=== PATIENT | male | born 2000 | race Caucasian/White ===

== ENCOUNTER 2025-02-27 03:00 | Emergency (ER) | payer OTHER, SELFPAY ==
[2025-02-27 03:08] VITALS: BP 130/81; PULSE 60; TEMP 36.7; O2SAT 98; BMI 34.7
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
== END 2025-02-27 04:38 | disposition home or self-care (01) ==
PROVIDERS: Emergency Provider Emergency Medicine
DX: G89.18 Other acute postprocedural pain (principal); R20.0 Anesthesia of skin; Z98.890 Other specified postprocedural states
CPT/HCPCS: 99283

== ENCOUNTER 2025-03-10 11:02 | Emergency (ER) | payer OTHER, SELFPAY ==
[2025-03-10 11:05] VITALS: BP 110/69; PULSE 111; TEMP 36.8; O2SAT 98; BMI 31.5
--- OUTSIDE RECORDS SUMMARY | 2025-03-10 11:27 | XMS_ITS | CCD ---
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 of pleural effusion or pneumothorax. Soft Tissues/Bones: There is bilateral gynecomastia. No acute displaced rib fracture or chest wall hematoma. Abdomen/Pelvis: Organs: Liver enhances normally without evidence of intrahepatic biliary ductal dilatation. The spleen, pancreas and adrenal glands are unremarkable. Left kidney enhances normally. No acute traumatic injury of the solid abdominal organs. There is a small chronically atrophic nonfunctioning right kidney. GI/Bowel: Stomach and duodenal sweep demonstrate no acute abnormality. The appendix is visualized and is unremarkable. No evidence of acute appendicitis. There is no evidence of bowel obstruction. No evidence of abnormal bowel wall thickening or distension. Pelvis: Bladder and prostate demonstrate no acute abnormality. Peritoneum/Retroperi toneum: No evidence of ascites or free air. No evidence of lymphadenopathy. Aorta is normal in caliber. Bones/Soft Tissues: No acute abnormality of the visualized osseous structures. No acute traumatic injury. Thoracic/lumbar spine: Thoracic and lumbar spine demonstrate normal alignment with normal height of the vertebral bodies. No evidence of an acute traumatic compression fracture. The spinous and transverse processes are intact. Mild multilevel degenerative changes noted throughout the thoracic and lumbar spine. No severe spinal canal stenosis. No paraspinal mass or hematoma. IMPRESSION: No evidence of traumatic injury to the chest, abdomen or pelvis. No evidence of traumatic injury to the thoracic or lumbar spine. Small chronically atrophic nonfunctioning right kidney. Interpreted by: Adi Kaye MD Signed by: Adi Kaye MD 03/01/25 Final result Normal [facility] Basic Metab w/rfx MGon 02-26 Anion gap [Moles/Vol] 11 mmol/L Normal 9-16 [facility] Comment on above: Performed By: #### C DP, BMPX #### [address] [address] [employer]: Guicho Richards MD Calcium [Mass/Vol] 8.6 mg/dL Normal 8.6-10.4 [facility] Comment on above: Performed By: #### C DP, BMPX #### [address] [address] [employer]: Guicho Richards MD Chloride [Moles/Vol] 105 mmol/L Normal 98-107 [facility] Comment on above: Performed By: #### C DP, BMPX #### [address] [address] [employer]: Guicho Richards MD CO2 [Moles/Vol] 22 mmol/L Normal 20-31 [facility] Comment on above: Performed By: #### C DP, BMPX #### [address] [address] [employer] Architect: Guicho Richards MD Creatinine [Mass/Vol] 0.9 mg/dL Normal 0.7-1.2 [facility] Comment on above: Performed By: #### C DP, BMPX #### [address] [address] [employer]: Guicho Richards MD GFR/1.73 sq M.predicted among non-blacks MDRD (S/P/Bld) [Vol rate/Area] mL/min/{1.73_m2} Normal >60 [facility] Comment on above: Result Comment: These results are not intended for use in patients <18 years of age. eGFR results are calculated without a race factor using the 2020 CKD-EPI equation. Careful clinical correlation is recommended, particularly when comparing to results calculated using previous equations. The CKD-EPI equation is less accurate in patients with extremes of muscle mass, extra-renal metabolism of creatine, excessive creatine ingestion, or following therapy that affects renal tubular secretion. Performed By: #### C DP, BMPX #### [facility] [address] [place] [phone] [employer]: Guicho Richards MD Glucose [Mass/Vol] 85 mg/dL Normal 74-99 [facility] Comment on above: Performed By: #### C DP, BMPX #### [facility] [address] [place] [address] [employer]: Guicho Richards MD Potassium [Moles/Vol] 3.8 mmol/L Normal 3.7-5.3 [facility] Comment on above: Result Comment: Spec imen hemolysis has exceeded the interference as defined by Isaiah. Value may be falsely increased. Suggest recollection if clinically indicated. Performed By: #### C DP, BMPX #### [address] [address] [employer]: Guicho Richards MD Sodium [Moles/Vol] 138 mmol/L Normal 136-145 [facility] Comment on above: Performed By: #### C DP, BMPX #### [facility] [address] [place] [address] [employer]: Guicho Richards MD Urea nitrogen [Mass/Vol] 12 mg/dL Normal 6-20 [facility] Comment on above: Performed By: #### C DP, BMPX #### [facility] [address] [place] [address] [employer]: Guicho Richards MD Basic Metabolic Panel w/ Ref barbara to MGon 03-30-2025 Anion gap [Moles/Vol] 11 mmol/L 9 - 16 mmol/L [facility] Calcium [Mass/Vol] 8.6 mg/dL 8.6 - 10. 4 mg/dL [facility] Chloride [Moles/Vol] 105 mmol/L 98 - 10 7 mmol/L [facility] CO2 [Moles/Vol] 22 mmol/L 20 - 31 mmol/L [facility] Creatinine [Mass/Vol] 0.9 mg/dL 0.7 - 1.2 mg/dL [facility] Est, Glom Filt Rate - PINF [facility] Comment on above: These results are not intended for use in patients <18 years of age. eGFR results are calculated without a race factor using the 2020 CKD-EPI equation. Careful clinical correlation is recommended, particularly when comparing to results calculated using previous equations. The CKD-EPI equation is less accurate in patients with extremes of muscle mass, extra-renal metabolism of creatine, excessive creatine ingestion, or following therapy that affects renal tubular secretion. Glucose [Mass/Vol] 85 mg/dL 74 - 99 mg/dL [facility] Potassium [Moles/Vol] 3.8 mmol/L 3.7 - 5.3 mmol/L [facility] Comment on above: Specimen hemolysis h as exceeded the interference as defined by Isaiah. Value may be falsely increased. Suggest recollection if clinically indicated. Sodium [Moles/Vol] 138 mmol/L 136 - 145 mmol/L [facility] Urea nitrogen [Mass/Vol] 12 mg/dL 6 - 20 mg/dL [facility] CBC with Auto Differentialon 02-26-2025 Basophils (Bld) [#/Vol] 0.03 10*3/uL [facility] Basophils/100 WBC (Bld) 0 % 0 - 2 % [facility] Eosinophils (Bld) [#/Vol] 0.11 10*3/uL [facility] Eosinophils/100 WBC (Bld) 1 % 1 - 4 % [facility] Erythrocyte distribution width (RBC) [Ratio] 13.4 % 11.8 - 14.4 % [facility] Hematocrit (Bld) [Volume fraction] 38.3 % Low 40.7 - 50.3 % [facility] Hemoglobin (Bld) [Mass/Vol] 12.2 g/dL Low 13.0 - 17.0 g/dL [facility] Immature granulocytes (Bld) [#/Vol] [facility] Immature granulocytes/100 WBC (Bld) 0 % 0 [facility] Interpretation and review of laboratory results Abnormal [facility] Lymphocytes/100 WBC (Bld) 34 % 24 - 43 % [facility] Lymphocytes/100 WBC (Bld) 3.07 % [facility] MCH (RBC) [Entitic mass] 28.8 pg 25.2 - 33.5 pg [facility] MCHC (RBC) [Mass/Vol] 31.9 g/dL 28.4 - 34.8 g/dL [facility] MCV (RBC) [Entitic vol] 90.3 fL 82.6 - 102.9 fL [facility] Monocytes/100 WBC (Bld) 6 % 3 - 12 % [facility] Monocytes/100 WBC (Bld) 0.58 % [facility] Neutrophils/100 WBC (Bld) 58 % 36 - 65 % [facility] Nucleated RBC/100 WBC (Bld) [Ratio] 0 % 0.0 per 100 WBC [facility] Platelet mean volume (Bld) [Entitic vol] 9.8 fL 8.1 - 13.5 fL [facility] Platelets (Bld) [#/Vol] 221 10*3/uL [facility] RBC (Bld) [#/Vol] 4.24 10*6/uL 4.21 - 5.7 7 m/uL [facility] Segmented neutrophils/100 WBC (Bld) 5.32 % [facility] WBC other (Bld) [#/Vol] 9.1 [facility] CBC with Diffon 02-26-2025 Abs. Basophil 0.03 k/uL Normal 0.00-0.20 [facility] Comment on above: Performed By: #### C DP, BMPX #### [facility] [address] [place] [address] [employer]: Guicho Richards MD Abs.Imm.Granulocyte <0.03 Normal 0.00-0.30 [facility] Comment on above: Performed By: #### C DP, BMPX #### [address] [address] [employer]: Guicho Richards MD Abs.Neutrophil (Seg) 5.32 k/uL Normal 1.50-8.10 [facility] Comment on above: Performed By: #### C DP, BMPX #### [address] [address] [employer]: Guicho Richards MD Basophils/100 WBC (Bld) 0 % Normal 0-2 [facility] Comment on above: Performed By: #### C DP, BMPX #### [place] [address] [employer]: Guicho Richards MD Eosinophils (Bld) [#/Vol] 0.11 10*3/uL Normal 0.00-0.44 [facility] Comment on above: Performed By: #### C DP, BMPX #### [address] [address] [employer]: Guicho Richards MD Eosinophils/100 WBC (Bld) 1 % Normal 1-4 [facility] Comment on above: Performed By: #### C DP, BMPX #### [address] [address] [employer] Architect: Guicho Richards MD Erythrocyte distribution width (RBC) [Ratio] 13.4 % Normal 11.8-14.4 [facility] Comment on above: Performed By: #### C DP, BMPX #### [address] [address] [employer]: Guicho Richards MD Hematocrit (Bld) [Volume fraction] 38.3 % Low 40.7-50.3 [facility] Comment on above: Performed By: #### C DP, BMPX #### [address] [address] [employer]: Guicho Richards MD Hemoglobin (Bld) [Mass/Vol] 12.2 g/dL Low 13.0-17.0 [facility] Comment on above: Performed By: #### C DP, BMPX #### [address] [address] [employer]: Guicho Richards MD Immature granulocytes/100 WBC (Bld) 0 % Normal 0 [facility] Comment on above: Performed By: #### C DP, BMPX #### [address] [address] [employer]: Guicho Richards MD Lymphocytes (Bld) [#/Vol] 3.07 10*3/uL Normal 1.10-3.70 [facility] Comment on above: Performed By: #### C DP, BMPX #### [address] [address] [employer]: Guicho Richards MD Lymphocytes/100 WBC (Bld) 34 % Normal 24-43 [facility] Comment on above: Performed By: #### C DP, BMPX #### [place] [address] [employer]: Guicho Richards MD MCH (RBC) [Entitic mass] 28.8 pg Normal 25.2-33.5 [facility] Comment on above: Performed By: #### C DP, BMPX #### [address] [address] [employer] Architect: Guicho Richards MD MCHC (RBC) [Mass/Vol] 31.9 g/dL Normal 28.4-34.8 [facility] Comment on above: Performed By: #### C DP, BMPX #### [address] [address] [employer] Architect: Guicho Richards MD MCV (RBC) [Entitic vol] 90.3 fL Normal 82.6-102.9 [facility] Comment on above: Performed By: #### C DP, BMPX #### [place] [address] [employer]: Guicho Richards MD Monocytes (Bld) [#/Vol] 0.58 10*3/uL Normal 0.10-1.20 [facility] Comment on above: Performed By: #### C DP, BMPX #### [place] [address] [employer]: Guicho Richards MD Monocytes/100 WBC (Bld) 6 % Normal 3-12 [facility] Comment on above: Performed By: #### C DP, BMPX #### [place] [address] [employer]: Guicho Richards MD Neutrophil (Seg) 58 % Normal 36-65 [facility] Comment on above: Performed By: #### C DP, BMPX #### [place] [address] [employer]: Guicho Richards MD NRBC Automated 0.0 per 100 WBC Normal 0.0 [facility] Comment on above: Performed By: #### C DP, BMPX #### [place] [address] [employer]: Guicho Richards MD Platelet mean volume (Bld) [Entitic vol] 9.8 fL Normal 8.1-13.5 [facility] Comment on above: Performed By: #### C DP, BMPX #### [address] [address] [employer] Architect: Guicho Richards MD Platelets (Bld) [#/Vol] 221 10*3/uL Normal 138-453 [facility] Comment on above: Performed By: #### C DP, BMPX #### [address] [address] [employer] Architect: Guicho Richards MD RBC (Bld) [#/Vol] 4.24 10*6/uL Normal 4.21-5.77 [facility] Comment on above: Performed By: #### C DP, BMPX #### [address] [address] [employer] Architect: Guicho Richards MD WBC (Bld) [#/Vol] 9.1 10*3/uL Normal 3.5-11.3 [facility] Comment on above: Performed By: #### C DP, BMPX #### [address] [address] [employer]: Guicho Richards MD Basic Metab w/rfx MGon 02-25 Anion gap [Moles/Vol] 12 mmol/L Normal 9-16 [facility] Comment on above: Performed By: #### C DP, BMPX #### [facility] [address] [place] [address] [employer]: Guicho Richards MD Calcium [Mass/Vol] 8.5 mg/dL Low 8.6-10.4 [facility] Comment on above: Performed By: #### C DP, BMPX #### [facility] [address] [place] [address] [employer] Architect: Guicho Richards MD Chloride [Moles/Vol] 105 mmol/L Normal 98-107 [facility] Comment on above: Performed By: #### C DP, BMPX #### [facility] [address] [place] [address] [employer] Architect: Guicho Richards MD CO2 [Moles/Vol] 21 mmol/L Normal 20-31 [facility] Comment on above: Performed By: #### C DP, BMPX #### [facility] [address] [place] [address] [employer]: Guicho Richards MD Creatinine [Mass/Vol] 0.8 mg/dL Normal 0.7-1.2 [facility] Comment on above: Performed By: #### C DP, BMPX #### [address] [address] [employer] Architect: Guicho Richards MD GFR/1.73 sq M.predicted among non-blacks MDRD (S/P/Bld) [Vol rate/Area] mL/min/{1.73_m2} Normal >60 [facility] Comment on above: Result Comment: These results are not intended for use in patients <18 years of age. eGFR results are calculated without a race factor using the 2020 CKD-EPI equation. Careful clinical correlation is recommended, particularly when comparing to results calculated using previous equations. The CKD-EPI equation is less accurate in patients with extremes of muscle mass, extra-renal metabolism of creatine, excessive creatine ingestion, or following therapy that affects renal tubular secretion. Performed By: #### C DP, BMPX #### [facility] [address] [place] [address] [employer]: Guicho Richards MD Glucose [Mass/Vol] 104 mg/dL High 74-99 [facility] Comment on above: Performed By: #### C DP, BMPX #### [facility] [address] [place] [address] [employer] Architect: Guicho Richards MD Potassium [Moles/Vol] 4.4 mmol/L Normal 3.7-5.3 [facility] Comment on above: Result Comment: Spec imen hemolysis has exceeded the interference as defined by Isaiah. Value may be falsely increased. Suggest recollection if clinically indicated. Performed By: #### C DP, BMPX #### [facility] [address] [place], [place] [phone] [employer]: Guicho Richards MD Sodium [Moles/Vol] 138 mmol/L Normal 136-145 [facility] Comment on above: Performed By: #### C DP, BMPX #### [facility] [address] [place], [place] [phone] [employer] Architect: Guicho Richards MD Urea nitrogen [Mass/Vol] 10 mg/dL Normal 6-20 [facility] Comment on above: Performed By: #### C DP, BMPX #### [facility] [address] [place], [place] [phone] [employer]: Guicho Richards MD Basic Metabolic Panel w/ Ref barbara to MG 02-25-2025 Anion gap [Moles/Vol] 12 mmol/L 9 - 16 mmol/L [facility] [employer] Calcium [Mass/Vol] 8.5 mg/dL Low 8.6 - 10. 4 mg/dL [facility] Chloride [Moles/Vol] 105 mmol/L 98 - 10 7 mmol/L [facility] CO2 [Moles/Vol] 21 mmol/L 20 - 31 mmol/L [facility] Creatinine [Mass/Vol] 0.8 mg/dL 0.7 - 1.2 mg/dL [facility] [employer] [facility] [employer] Est, [place] Rate - PINF [facility] Comment on above: These results are not intended for use in patients <18 years of age. eGFR results are calculated without a race factor using the 2020 CKD-EPI equation. Careful clinical correlation is recommended, particularly when comparing to results calculated using previous equations. The CKD-EPI equation is less accurate in patients with extremes of muscle mass, extra-renal metabolism of creatine, excessive creatine ingestion, or following therapy that affects renal tubular secretion. Glucose [Mass/Vol] 104 mg/dL High 74 - 99 mg/dL [facility] [employer] Interpretation and review of laboratory results Abnormal [facility] Potassium [Moles/Vol] 4.4 mmol/L 3.7 - 5.3 mmol/L [facility] Comment on above: Specimen hemolysis h as exceeded the interference as defined by Isaiah. Value may be falsely increased. Suggest recollection if clinically indicated. Sodium [Moles/Vol] 138 mmol/L 136 - 145 mmol/L [facility] Urea nitrogen [Mass/Vol] 10 mg/dL 6 - 20 mg/dL [facility] CBC with Auto Differentialon 02-25-2025 Basophils (Bld) [#/Vol] [facility] Basophils/100 WBC (Bld) 0 % 0 - 2 % [facility] Eosinophils (Bld) [#/Vol] [facility] Eosinophils/100 WBC (Bld) 0 % Low 1 - 4 % [facility] Erythrocyte distribution width (RBC) [Ratio] 13.1 % 11.8 - 14.4 % [facility] Hematocrit (Bld) [Volume fraction] 41.1 % 40.7 - 50.3 % [facility] Hemoglobin (Bld) [Mass/Vol] 13.2 g/dL 13.0 - 17.0 g/dL [facility] Immature granulocytes (Bld) [#/Vol] 0.08 10*3/uL [facility] Immature granulocytes/100 WBC (Bld) 1 % High 0 [facility] Interpretation and review of laboratory results Abnormal [facility] Lymphocytes/100 WBC (Bld) 10 % Low 24 - 43 % [facility] Lymphocytes/100 WBC (Bld) 1.4 % [facility] MCH (RBC) [Entitic mass] 28.9 pg 25.2 - 33.5 pg [facility] MCHC (RBC) [Mass/Vol] 32.1 g/dL 28.4 - 34.8 g/dL [facility] MCV (RBC) [Entitic vol] 90.1 fL 82.6 - 102.9 fL [facility] Monocytes/100 WBC (Bld) 4 % 3 - 12 % [facility] Monocytes/100 WBC (Bld) 0.57 % [facility] Neutrophils/100 WBC (Bld) 85 % High 36 - 65 % [facility] Nucleated RBC/100 WBC (Bld) [Ratio] 0 % 0.0 per 100 WBC [facility] Platelet mean volume (Bld) [Entitic vol] 10.1 fL 8.1 - 13.5 fL [facility] Platelets (Bld) [#/Vol] 236 10*3/uL [facility] RBC (Bld) [#/Vol] 4.56 10*6/uL 4.21 - 5.7 7 m/uL [facility] Segmented neutrophils/100 WBC (Bld) 12.72 % High [facility] WBC other (Bld) [#/Vol] 14.8 High [facility] CBC with Diffon 02-25-2025 Abs. Basophil <0.03 Normal 0.00-0.20 [facility] Comment on above: Performed By: #### C DP, BMPX #### [place] [address] [employer]: Guicho Richards MD Abs. Eosinophil <0.03 Normal 0.00-0.44 [facility] Comment on above: Performed By: #### C DP, BMPX #### [facility] [address] [place] [address] [employer]: Guicho Richards MD Abs.Imm.Granulocyte 0.08 k/uL Normal 0.00-0.30 [facility] Comment on above: Performed By: #### C DP, BMPX #### [facility] [address] [place] [address] [employer]: Guicho Richards MD Abs.Neutrophil (Seg) 12.72 k/uL High 1.50-8.10 [facility] Comment on above: Performed By: #### C DP, BMPX #### [facility] [address] [place] [address] [employer]: Guicho Richards MD Basophils/100 WBC (Bld) 0 % Normal 0-2 [facility] Comment on above: Performed By: #### C DP, BMPX #### [facility] [address] [place] [address] [employer]: Guicho Richards MD Eosinophils/100 WBC (Bld) 0 % Low 1-4 [facility] Comment on above: Performed By: #### C DP, BMPX #### [facility] [address] [place] [address] [employer]: Guicho Richards MD Erythrocyte distribution width (RBC) [Ratio] 13.1 % Normal 11.8-14.4 [facility] Comment on above: Performed By: #### C DP, BMPX #### [facility] [address] [place] [address] [employer]: Guicho Rcihards MD Hematocrit (Bld) [Volume fraction] 41.1 % Normal 40.7-50.3 [facility] Comment on above: Performed By: #### C DP, BMPX #### [facility] [address] [place] [address] [employer]: Guicho Richards MD Hemoglobin (Bld) [Mass/Vol] 13.2 g/dL Normal 13.0-17.0 [facility] Comment on above: Performed By: #### C DP, BMPX #### [facility] [address] [place] [address] [employer]: Guicho Richards MD Immature granulocytes/100 WBC (Bld) 1 % High 0 [facility] Comment on above: Performed By: #### C DP, BMPX #### [facility] [address] [place] [address] [employer]: Guicho Richards MD Lymphocytes (Bld) [#/Vol] 1.40 10*3/uL Normal 1.10-3.70 [facility] Comment on above: Performed By: #### C DP, BMPX #### [address] [address] [employer]: Guicho Richards MD Lymphocytes/100 WBC (Bld) 10 % Low 24-43 [facility] Comment on above: Performed By: #### C DP, BMPX #### [address] [address] [employer] Architect: Guicho Richards MD MCH (RBC) [Entitic mass] 28.9 pg Normal 25.2-33.5 [facility] Comment on above: Performed By: #### C DP, BMPX #### [address] [address] [employer] Architect: Guicho Richards MD MCHC (RBC) [Mass/Vol] 32.1 g/dL Normal 28.4-34.8 [facility] Comment on above: Performed By: #### C DP, BMPX #### [address] [address] [employer] Architect: Guicho Richards MD MCV (RBC) [Entitic vol] 90.1 fL Normal 82.6-102.9 [facility] Comment on above: Performed By: #### C DP, BMPX #### [address] [address] [employer] Architect: Guicho Richards MD Monocytes (Bld) [#/Vol] 0.57 10*3/uL Normal 0.10-1.20 [facility] Comment on above: Performed By: #### C DP, BMPX #### [address] [address] [employer] Architect: Guicho Richards MD Monocytes/100 WBC (Bld) 4 % Normal 3-12 [facility] Comment on above: Performed By: #### C DP, BMPX #### [address] [address] [employer] Architect: Guicho Richards MD Neutrophil (Seg) 85 % High 36-65 [facility] Comment on above: Performed By: #### C DP, BMPX #### [address] [address] [employer] Architect: Guicho Richards MD NRBC Automated 0.0 per 100 WBC Normal 0.0 [facility] Comment on above: Performed By: #### C DP, BMPX #### [address] [address] [employer] Architect: Guicho Richards MD Platelet mean volume (Bld) [Entitic vol] 10.1 fL Normal 8.1-13.5 [facility] Comment on above: Performed By: #### C DP, BMPX #### [address] [address] [employer] Architect: Guicho Richards MD Platelets (Bld) [#/Vol] 236 10*3/uL Normal 138-453 [facility] Comment on above: Performed By: #### C DP, BMPX #### [address] [address] [employer] Architect: Guicho Richards MD RBC (Bld) [#/Vol] 4.56 10*6/uL Normal 4.21-5.77 [facility] Comment on above: Performed By: #### C DP, BMPX #### [address] [address] [employer] Architect: Guicho Richards MD WBC (Bld) [#/Vol] 14.8 10*3/uL High 3.5-11.3 [facility] Comment on above: Performed By: #### C DP, BMPX #### [address] [address] [employer] Architect: Guicho Richards MD XR TIBIA FIBULA LEFT (2 VIEW S)on 02-25-2025 XR TIBIA FIBULA LEFT (2 VIEWS) EXAMINATION: XRAY VIEWS OF THE LEFT TIBIA AND FIBULA 02/25/2025 7:30 pm COMPARISON: 02/24/2025 HISTORY: ORDERING SYSTEM PROVIDED HISTORY: Fall, r/o injury post op TECHNOLOGIST PROVIDED HISTORY: Fall, r/o injury post op Reason for Exam: fall after having surgery yesterday FINDINGS: Postsurgical changes seen in the tibia with intramedullary александр and interlocking screws transfixing the distal 3rd tibial fracture, the appearance is similar to prior exam. No additional fracture. There is soft tissue swelling over the ankle joint. IMPRESSION: Postsurgical changes in the tibia with intramedullary александр and interlocking screws transfixing the distal tibial fracture, the appearance is similar to prior exam. No additional fracture. Soft tissue swelling over the ankle joint. Interpreted by: Tru Tran MD Signed by: Tru Tran MD 02/25/25 Final result Normal [facility] XR Tibia and Fibula - left 2 Viewson 02-25-2025 Postsurgical changes in the tibia with intramedullary александр and interlocking screws transfixing the distal tibial fracture, the appearance is similar to prior exam. No additional fracture. Soft tissue swelling over the ankle joint. [facility] EXAMINATION: XRAY VIEWS OF THE LEFT TIBIA AND FIBULA 02/25/2025 7:30 pm COMPARISON: 02/24/2025 HISTORY: ORDERING SYSTEM PROVIDED HISTORY: Fall, r/o injury post op TECHNOLOGIST PROVIDED HISTORY: Fall, r/o injury post op Reason for Exam: fall after having surgery yesterday FINDINGS: Postsurgical changes seen in the tibia with intramedullary александр and interlocking screws transfixing the distal 3rd tibial fracture, the appearance is similar to prior exam. No additional fracture. There is soft tissue swelling over the ankle joint. [facility] Tru Tran MD - 02/25/2025 EXAMINATION: XRAY VIEWS OF THE LEFT TIBIA AND FIBULA 02/25/2025 7:30 pm COMPARISON: 02/24/2025 HISTORY: ORDERING SYSTEM PROVIDED HISTORY: Fall, r/o injury post op TECHNOLOGIST PROVIDED HISTORY: Fall, r/o injury post op Reason for Exam: fall after having surgery yesterday FINDINGS: Postsurgical changes seen in the tibia with intramedullary александр and interlocking screws transfixing the distal 3rd tibial fracture, the appearance is similar to prior exam. No additional fracture. There is soft tissue swelling over the ankle joint. IMPRESSION: Postsurgical changes in the tibia with intramedullary александр and interlocking screws transfixing the distal tibial fracture, the appearance is similar to prior exam. No additional fracture. Soft tissue swelling over the ankle joint. [facility] Radiology Study observation (narrative) [facility] XR Tibia and Fibula - left 2 ViewsOrdered By: Tru Tran on 02-25-2025 [facility] Work Phone: Basic Metab w/rfx MGon 02-24 Anion gap [Moles/Vol] 16 mmol/L Normal 9-16 [facility] Comment on above: Performed By: #### B MPX #### [address] [address] [employer] Architect: Guicho Richards MD Calcium [Mass/Vol] 8.8 mg/dL Normal 8.6-10.4 [facility] Comment on above: Performed By: #### B MPX #### [address] [address] [employer] Architect: Guicho Richards MD Chloride [Moles/Vol] 103 mmol/L Normal 98-107 [facility] Comment on above: Performed By: #### B MPX #### [facility] [address] [place] [address] [employer] Architect: Guicho Richards MD CO2 [Moles/Vol] 18 mmol/L Low 20-31 [facility] Comment on above: Performed By: #### B MPX #### [facility] [address] [place] [address] [employer] Architect: Guicho Richards MD Creatinine [Mass/Vol] 0.9 mg/dL Normal 0.7-1.2 [facility] Comment on above: Performed By: #### B MPX #### [address] [address] [employer] Architect: Guicho Richards MD GFR/1.73 sq M.predicted among non-blacks MDRD (S/P/Bld) [Vol rate/Area] mL/min/{1.73_m2} Normal >60 [facility] Comment on above: Result Comment: These results are not intended for use in patients <18 years of age. eGFR results are calculated without a race factor using the 2020 CKD-EPI equation.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 control pain) for up to 7 days. Max Daily Amount: 30 mg 42 tablet 02/26/2025 naproxen (NAPROSYN) 500 MG tablet Take 1 tablet by mouth 2 times daily (with meals) 28 tablet 1 02/26/2025 gabapentin (NEURONTIN) 100 MG capsule Take 1 capsule by mouth 3 times daily for 14 days. 42 capsule 02/26/2025 docusate sodium (COLACE) 100 MG capsule Take 1 capsule by mouth 2 times daily as needed for Constipation 20 capsule 02/26/2025 cyclobenzaprine (FLEXERIL) 10 MG tablet Take 1 tablet by mouth 3 times daily as needed for Muscle spasms 50 tablet 02/26/2025 acetaminophen (TYLENOL) 500 MG tablet Take 2 tablets by mouth every 6 hours as needed for Pain 112 tablet 02/26/2025 vitamin D (ERGOCALCIFEROL) 1.25 MG (54710 UT) CAPS capsule Take 1 capsule by mouth once a week 12 capsule 1 02/23/2025 Scheduled Active and Recently Administ ered Medications (unrecognized section and content) Medication Order 02/24/2025 02/25/2025 02/26/2025 acetaminophen (TYLENOL) tablet 650 mg 650 mg, Oral, EVERY 6 HOURS, First dose on Susan 02/23/25 at 1245, Until Discontinued, Maximum dose of acetaminophen is 4000 mg from all sources in 24 hours. 0512 (Given - Provider: Mckenna Reyna RN)0803 (MAR Hold - Provider: Rufina Autohold - Reason: Unreviewed Transfer Orders)0900 (Automatically Held - Provider: Rfuina Autohold)1500 (Automatically Held - Provider: Rufina Autohold)1535 (MAR Unhold - Provider: Sujey Sanchez RN)1554 (Given - Provider: Sujey Sanchez RN)202 (Given - Provider: Ella Wu RN) 0328 (Given - Provider: Danelle Bernstein RN)0925 (Given - Provider: Jessy Stroud)153 (Given - Provider: Jessy Stroud)2031 (Given - Provider: Edson Ruth RN) 0344 (Given - Provider: Edson Ruth RN)0841 (Given - Provider: Nikki Elizabeth, RN)1440 (Given - Provider: Nikki Elizabeth RN)2100 (Due - Provider: Teressa Christy [facility]) ceFAZolin (ANCEF) 2000 mg in sterile water 20 mL IV syringe (COMPLETED) 2,000 mg, IntraVENous, TRAVEL PTA TO O.R., On Thu02/24/25 at 0000, For 1 dose, Do not administer on the floor. Please transport to OR with pt on day of surgery. Thank you Administer over 5 mins. 0803 (MAR Hold - Provider: Rufina Wilde - Reason: Unreviewed Transfer Orders)1110 (Given - Provider: SHAUN Wood CRNA)1110 (MAR Unhold - Provider: SHAUN Wood CRNA) ceFAZolin (ANCEF) 2000 mg in sterile water 20 mL IV syringe (COMPLETED) 2,000 mg, IntraVENous, EVERY 8 HOURS, First dose on Thu02/24/25 at 2230, For 2 doses, Administer over 5 mins. 2222 (Given - Provider: Ella Wu RN) 0612 (Given - Provider: Danelle Bernstein RN) enoxaparin Sodium (LOVENOX) injection 30 mg 30 mg, SubCUTAneous, EVERY 12 HOURS SCHEDULED (2 times per day), First dose on Thu02/24/25 at 0900, Until Discontinued, Indication of Use: Prophylaxis-DVT/PE 0803 (MAR Hold - Provider: Rufina Autohold - Reason: Unreviewed Transfer Orders)0900 (Automatically Held - Provider: Rufina Moreauhold)1535 (MAR Unhold - Provider: Sujey Sanchez, FABRIZIO)2023 (Given - Provider: Ella Wu, FABRIZIO) 0825 (Given - Provider: Nikki Elizabeth, RN)203 (Given - Provider: Edson Ruth RN) 0841 (Given - Provider: Nikki Elizabeth, FABRIZIO)2100 (Due) fentaNYL (SUBLIMAZE) injection 100 mcg (COMPLETED) 100 mcg, IntraVENous, ONCE, 1 dose, On Thu02/24/25 at 0830, If oral and IV narcotics ordered, use oral first and only use IV if oral is ineffective or cannot take oral. Do Not give oral and IV within 1 hour of each other unless specifically ordered. 0823 (Given - Provider: Allie Huffman RN) ibuprofen (ADVIL;MOTRIN) tablet 400 mg 400 mg, Oral, EVERY 12 HOURS, 6 doses, First dose on Susan 02/23/25 at 1245, Last dose on 02/26/25 at 0045 0157 (Not Given - Provider: Mckenna Reyna RN - Reason: Other)0803 (MAR Hold - Provider: Rufina Autohold - Reason: Unreviewed Transfer Orders)1245 (Automatically Held - Provider: Rufina Autohold)1535 (MAR Unhold - Provider: Sujey Sanchez, FABRIZIO) 0038 (Given - Provider: Ella Wu RN)124 (Given - Provider: Nikki Elizabeth, FABRIZIO) 0010 (Given - Provider: Edson Ruth RN) midazolam PF (VERSED) injection 2 mg (COMPLETED) 2 mg, IntraVENous, ONCE, 1 dose, On Thu02/24/25 at 0830 0823 (Given - Provider: Allie Huffman RN) sodium chloride flush 0.9 % injection 10 mL 10 mL, IntraVENous, EVERY 12 HOURS SCHEDULED (2 times per day), First dose on Susan 02/23/25 at 2100, Until Discontinued 08 (MAR Hold - Provider: Rufina Autohold - Reason: Unreviewed Transfer Orders)0900 (Automatically Held - Provider: Rufina Wilde)153 (MAR Unhold - Provider: Sujey Sanchez RN)2024 (Given - Provider: Ella Wu RN) 0827 (Given - Provider: Nikki Elizabeth, FABRIZIO)203 (Given - Provider: Edson Ruth RN) 0841 (Given - Provider: Nikki Elizabeth, RN)2100 (Due) Continuous Medication Order 02/24/2025 02/25/2025 02/26/2025 lactated ringers infusion IntraVENous, CONTINUOUS, Starting on Susan 02/23/25 at 1245, Continue until urine output > 30 cc/hr and patient has resumed normal oral intake 08 (MAR Hold - Provider: Rufina Autohold - Reason: Unreviewed Transfer Orders)1535 (MAR Unhold - Provider: Sujey Sanchez RN) PRN Medication Order 02/24/2025 02/25/202502/2602/26/2025 0.9 % sodium chloride infusion IntraVENous, at 5-250 mL/hr, PRN, if patient receiving piggyback infusions and maintenance fluids are not ordered, Starting on Susan 02/23/25 at 1137, For piggyback infusion, administer at same rate as piggyback for a total of 25 mL. Enter 25 mL into dose field and piggyback rate into rate field of order. If piggyback is infusing at a rate less than 100 mL/hr, enter 25 mL into dose field and 100 mL/hr into rate field of order. 0803 ([facility] Hold - Provider: Rufina Autohold - Reason: Unreviewed Transfer Orders)1535 ([facility] Unhold - Provider: Sujey Sanchez RN) 0.9 % sodium chloride infusion IntraVENous, at 5-250 mL/hr, PRN, if patient receiving piggyback infusions and maintenance fluids are not ordered, Starting on Susan 02/23/25 at 1234, For piggyback infusion, administer at same rate as piggyback for a total of 25 mL. Enter 25 mL into dose field and piggyback rate into rate field of order. If piggyback is infusing at a rate less than 100 mL/hr, enter 25 mL into dose field and 100 mL/hr into rate field of order. 0803 ([facility] Hold - Provider: Rufina Autohold - Reason: Unreviewed Transfer Orders)1535 ([facility] Unhold - Provider: Sujey Sanchez RN) HYDROmorphone (DILAUDID) injection 0.5 mg (CANCELED) 0.5 mg, IntraVENous, EVERY 5 MIN PRN, 4 doses, Starting on Thu02/24/25 at 1446, Until Thu02/24/25 at 1534, Pain Severe (7-10), Phase I - Initial therapy for severe pain., PACU only 1456 (Given - Provider: Lesa Lunsford RN)1506 (Given - Provider: Lesa Lunsford RN) morphine injection 2 mg(Linked Group 1) 2 mg, IntraVENous, EVERY 2 HOURS PRN, Starting on Susan 02/23/25 at 1234, Until Discontinued, Pain Moderate (4-6), allowed for higher pain score per patient request, If oral and IV narcotics ordered, use oral first and only use IV if oral is ineffective or cannot take oral. Do Not give oral and IV within 1 hour of each other unless specifically ordered. 0803 ([facility] Hold - Provider: [facility] Autohold - Reason: Unreviewed Transfer Orders)153 (MAR Unhold - Provider: Sujey Sanchez RN)2020 (See Alternative - Provider: Ella Wu RN) 023 (See Alternative - Provider: Danelle Bernstein RN)0826 (See Alternative - Provider: Nikki Elizabeth, FABRIZIO) morphine injection 4 mg(Linked Group 1) 4 mg, IntraVENous, EVERY 2 HOURS PRN, Starting on Susan 02/23/25 at 1234, Until Discontinued, Pain Severe (7-10), If oral and IV narcotics ordered, use oral first and only use IV if oral is ineffective or cannot take oral. Do Not give oral and IV within 1 hour of each other unless specifically ordered. 0803 ([facility] Hold - Provider: [facility] Autohold - Reason: Unreviewed Transfer Orders)153 (MAR Unhold - Provider: Sujey Sanchez RN)2020 (Given - Provider: Ella Wu RN) 237 (Given - Provider: Danelle Bernstein RN)0826 (Given - Provider: Nikki Elizabeth, FABRIZIO) ondansetron (ZOFRAN) injection 4 mg(Linked Group 2) 4 mg, IntraVENous, EVERY 6 HOURS PRN, Starting on Susan 02/23/25 at 1137, Until Discontinued, Nausea, Vomiting, Administer if oral route cannot be used. 0803 ([facility] Hold - Provider: [facility] Autohold - Reason: Unreviewed Transfer Orders)153 ([facility] Unhold - Provider: Sujey Sanchez RN) ondansetron (ZOFRAN-ODT) disintegrating tablet 4 mg(Linked Group 2) 4 mg, Oral, EVERY 8 HOURS PRN, Starting on Susan 02/23/25 at 1137, Until Discontinued, Nausea, Vomiting 08 ([facility] Hold - Provider: [facility] Autohold - Reason: Unreviewed Transfer Orders)153 ([facility] Unhold - Provider: Sujey Sanchez RN) oxyCODONE (ROXICODONE) immediate release tablet 10 mg(Linked Group 3) 10 mg, Oral, EVERY 4 HOURS PRN, Starting on Susan 02/23/25 at 1236, Until Discontinued, Pain Severe (7-10) 0803 (MAR Hold - Provider: [facility] Autohold - Reason: Unreviewed Transfer Orders)1535 (MAR Unhold - Provider: Sujey Sanchez RN)1554 (Given - Provider: Sujey Sanchez RN) 0038 (Given - Provider: Ella Wu, RN)0713 (Given - Provider: Nikki Elizabeth, RN)1124 (Given - Provider: Jessy Stroud)161 (Given - Provider: Jessy Stroud)2030 (Given - Provider: Edson Ruth RN) oxyCODONE (ROXICODONE) immediate release tablet 5 mg(Linked Group 3) 5 mg, Oral, EVERY 4 HOURS PRN, Starting on Thu02/23/25 at 1236, Until Discontinued, Pain Moderate (4-6), allowed for higher pain score per patient request 0803 (MAR Hold - Provider: [facility] Autohold - Reason: Unreviewed Transfer Orders)1535 (MAR Unhold - Provider: Sujey Sanchez RN)1554 (See Alternative - Provider: Sujey Sanchez RN) 0038 (See Alternative - Provider: Ella Wu, FABIRZIO)0713 (See Alternative - Provider: Nikki Elizabeth, FABRIZIO)1124 (See Alternative - Provider: Jessy Stroud)1615 (See Alternative - Provider: Jessy Stroud)2030 (See Alternative - Provider: Edson Ruth, FABRIZIO) polyethylene glycol (GLYCOLAX) packet 17 g 17 g, Oral, DAILY PRN, Starting on Thu02/23/25 at 1234, Until Discontinued, Constipation, First line therapy for constipation 0803 (MAR Hold - Provider: [facility] Autohold - Reason: Unreviewed Transfer Orders)1535 (MAR Unhold - Provider: Sujey Sanchez RN) sod chloride IRR soln 0.9 % irrigation (CANCELED) CONTINUOUS PRN, Starting on Thu02/24/25 at 1115, Intra-op 1115 (New Bag - Provider: Froylan Ventura, DO - Comment: POURED TO BACK TABLE)1354 (Due: Dose Ending - Provider: Automatic Transfer Provider - Comment: [Order ends at this time. Document a Stopped action when infusion is complete.]) sodium chloride flush 0.9 % injection 10 mL 10 mL, IntraVENous, PRN, Starting on Susan 02/23/25 at 1234, Until Discontinued, Line Care, After every IV line use 0803 ([facility] Hold - Provider: Rufina Autohold - Reason: Unreviewed Transfer Orders)1535 ([facility] Unhold - Provider: Sujey Sanchez RN) sodium chloride flush 0.9 % injection 5-40 mL 5-40 mL, IntraVENous, PRN, Starting on Susan 02/23/25 at 1137, Until Discontinued, Line Care, After every IV line use, For Line Patency: Peripheral IV = 5 mL; Midline or Central Line = 10 mL/lumen. If following IV push medication, administer flush at same rate as the IV push. Flush volume is determined by type of infusion therapy being given. For non-viscous solutions use: Peripheral IV = 5 mL Midline or Central Line = 10 mL/lumen For viscous solutions (i.e. blood components, parenteral nutrition, contrast media, or after obtaining blood sample) use: Peripheral IV = 10 mL Midline or Central Line = 20 mL/lumen 0803 ([facility] Hold - Provider: Rufina Autohold - Reason: Unreviewed Transfer Orders)1535 ([facility] Unhold - Provider: Sujey Sanchez RN) Linked Groups Order Group 1: morphine injection 2 mgJump to med 2 mg, IntraVENous, EVERY 2 HOURS PRN, Starting on Susan 02/23/25 at 1234, Until Discontinued, Pain Moderate (4-6), allowed for higher pain score per patient request, If oral and IV narcotics ordered, use oral first and only use IV if oral is ineffective or cannot take oral. Do Not give oral and IV within 1 hour of each other unless specifically ordered. Or morphine injection 4 mgJump to med 4 mg, IntraVENous, EVERY 2 HOURS PRN, Starting on Susan 02/23/25 at 1234, Until Discontinued, Pain Severe (7-10), If oral and IV narcotics ordered, use oral first and only use IV if oral is ineffective or cannot take oral. Do Not give oral and IV within 1 hour of each other unless specifically ordered. Group 2: ondansetron (ZOFRAN-ODT) disintegrating tablet 4 mgJump to med 4 mg, Oral, EVERY 8 HOURS PRN, Starting on Susan 02/23/25 at 1137, Until Discontinued, Nausea, Vomiting Or ondansetron (ZOFRAN) injection 4 mgJump to med 4 mg, IntraVENous, EVERY 6 HOURS PRN, Starting on Susan 02/23/25 at 1137, Until Discontinued, Nausea, Vomiting, Administer if oral route cannot be used. Group 3: oxyCODONE (ROXICODONE) immediate release tablet 5 mgJump to med 5 mg, Oral, EVERY 4 HOURS PRN, Starting on Susan 02/23/25 at 1236, Until Discontinued, Pain Moderate (4-6), allowed for higher pain score per patient request Or oxyCODONE (ROXICODONE) immediate release tablet 10 mgJump to med 10 mg, Oral, EVERY 4 HOURS PRN, Starting on Susan 02/23/25 at 1236, Until Discontinued, Pain Severe (7-10) FOR RECORDS PERTAINING TO PATIENTS WHO ARE OR HAVE BEEN ENROLLED IN A CHEMICAL DEPENDENCY/SUBSTANCEABUSE PROGRAM, SOME INFORMATION MAY BE OMITTED. This clinical summary was aggregated from multiple sources. Caution should be exercised in using it in the provision of clinical care. This summary normalizes information from multiple sources, and as a consequence, information in this document may materially change the coding, format and clinical context of patient data. In addition, data may be omitted in some cases. CLINICAL DECISIONS SHOULD BE BASED ON THE PRIMARY CLINICAL RECORDS. [employer] provides no warranty or guarantee of the accuracy or completeness of information in this document.
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
--- NOTE | 2025-03-10 11:35 | PC.NURSE ---
Dr. Ahn at bedside at this time for suture removal.
== END 2025-03-10 11:53 | disposition home or self-care (01) ==
PROVIDERS: Emergency Provider Emergency Medicine
DX: S01.511D Laceration without foreign body of lip, subsequent encounter (principal); V49.9XXD Car occupant (driver) (passenger) injured in unspecified traffic accident, subsequent encounter
CPT/HCPCS: 99281